=== PATIENT | male | born 1990 | race Caucasian/White ===

== ENCOUNTER 2023-05-03 13:20 | Outpatient (AMB) | payer BC, SELFPAY ==
--- NOTE | 2023-05-03 13:24 | MHC.OFFVIS ---
Intake Vital Signs 05/03/23 13:25 Height 5 ft 10 in Weight 183 lb 6.793 oz BMI 26.3 BP 136/84 Blood Pressure Location Lt brachial Position Sitting Pulse 70 Pulse Source Pulse Oximeter Intake Visit Reasons: Diarrhea Intake Note: Pt presents to the office today for c/o diarrhea. Pt states he has been having on and off diarrhea since 2019. Pt states he feels like he needs to go to the bathroom multiple times during the day but states he only goes about once a day and sometimes doesnt defecate at all everyday. Pt states he has mainly soft stools. Pt states he does get lower abdominal pain everyday which started in 2019. Pt denies any N/V or change to his diet. Pt has tried the FODMAP diet with no relief. Allergies No Known Allergies Allergy (Verified 05/03/23 13:26) HPI HPI Comments History of Present Illness Details A 32 y/o male lower stomach pains for the past couple of years. 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 Review of Systems Const All systems reviewed & are unremarkable except as noted in HPI and below Card Denies chest pain and Denies dyspnea Resp Denies dyspnea GI Reports abdominal pain, Denies hematochezia, Reports GI cramping, Denies heartburn, Reports loose stools, Denies nausea and Denies vomiting Psych Reports anxiety Physical Exam Vital Signs: Last Vital Signs Pulse 70 05/03/23 13:25 BP 136/84 05/03/23 13:25 BMI result Body Mass Index 26.3 Const General: cooperative, healthy appearing, comfortable and no acute distress Orientation/consciousness: patient oriented x3 Limitations: no limitations Eyes Conjunctivae: conjunctivae normal Resp Effort & Inspection: normal respiratory effort and able to speak in complete sentences Auscultation: clear to auscultation bilaterally, no rales, no rhonchi and no wheezes Cardio Rate: regular rate Rhythm: regular rhythm Heart sounds: S1 normal heart sound present and S2 normal heart sound present GI Inspection: Yes normal to inspection Palpation (GI): Soft to palpation and nontender Auscultation: normal bowel sounds Skin General skin exam: no rashes or lesions noted Neuro General: patient oriented x3 Extrem General: Yes full ROM Psych Appearance: grossly normal and well kempt Mental Status: mental status grossly normal Speech and movement: Clear speech present Affect: Labile affect present Attitude: cooperative Thought process: Normal thought process present Thought content: Normal thought content present Assessment & Plan Assessment & Plan (1) Abdominal pain: Comment: Second opinion- Diffuse -for a functional component Will give trial to dicyclomine g may increase to t.i.d. Code(s): R10.9 - Unspecified abdominal pain Plan Will get labs Colonoscopy order placed-will discuss further at follow-up Orders: Orders Thyroid Stimulating Hormone Today R19.8 - Other specified symptoms and signs involving the digestive system and abdomen Endomysial IgA rflx Titer Today R10.9 - Unspecified abdominal pain Transglutaminase IgA Today R19.7 - Diarrhea, unspecified Colonoscopy - GI Use Only Today Z12.11 - Encounter for screening for malignant neoplasm of colon C Reactive Protein Today R10.9 - Unspecified abdominal pain Erythrocyte Sedimentation Rate Today R19.7 - Diarrhea, unspecified Complete Blood Count Auto Diff Today K52.9 - Noninfective gastroenteritis and colitis, unspecified Comprehensive Met. Panel Today K58.9 - Irritable bowel syndrome without diarrhea Medications: New dicyclomine may take 1 QD increase to tid if need- 10 mg PO TID 90 caps 0RF Patient Instructions: 32-year-old male vague abdominal pain, will further evaluate tor/o IBD vs IBS-may have functional component Will get labs Trial of dicyclomine Reviewed stress reduction Encouraged to call with questions or concerns Colonoscopy order placed-will discuss further at follow-up Coding Level of Care Code New Pt Level 4 (74834) Diagnoses Abdominal pain R10.9 Time Spent (min) 30
[2023-05-03 13:25] VITALS: BP 136/84; PULSE 70; BMI 26.3
== END 2023-05-03 14:38 | disposition home or self-care (01) ==
PROVIDERS: PCP Registered Nurse; Visit Provider Physician Assistant
DX: R10.9 Unspecified abdominal pain (principal)
CPT/HCPCS: 99204

== ENCOUNTER 2023-05-03 13:20 | Outpatient (REF) | payer BC, SELFPAY ==
[2023-05-03 14:12] LABS: MANUAL DIFF FLAG NO
[2023-05-03 14:30] LABS: Basophils Percent Auto 0.6 % (0-2); Eosinophils Absolute Auto 0.1 X10*3/uL (0.0-0.4); Eosinophils Percent Auto 1.6 % (0-4); Hematocrit 51.2 % (42.0-52.0); Hemoglobin 17.1 g/dl (14.0-18.0); Imm Gran Abs Auto 0.02 X10*3/uL (0.00-0.03); Imm Gran Pct Auto 0.3 % (0.0-0.4); Lymphocytes Absolute Auto 1.8 X10*3/uL (1.2-4.9); Lymphocytes Percent Auto 26.9 % (20-40); Mean Corpuscular HGB Conc 33.4 g/dl (31.0-36.0); Mean Corpuscular Hemoglobin 30.8 pg (27.0-33.0); Mean Corpuscular Volume 92.1 fL (80.0-98.0); Mean Platelet Volume 10.5 fL (9.4-12.4); Monocytes Absolute Auto 0.4 X10*3/uL (0.1-1.2); Monocytes Percent Auto 6.6 % (2-11); Neutrophils Absolute Auto 4.3 x10*3/uL (2.0-8.3); Platelet Count 263 X10*3/uL (160-400); Red Blood Count 5.56 X10*6/uL (4.60-5.80); Red Cell Distribution Width 12.3 % (11.0-16.0); White Blood Count 6.7 X10*3/uL (4.8-10.8)
[2023-05-03 15:09] LABS: Erythrocyte Sedimentation Rate 1 MM/HR (0-15)
[2023-05-03 15:22] LABS: Alanine Aminotransferase 13 U/L (0-40); Albumin Level 4.8 g/dL (3.5-5.0); Alkaline Phosphatase 67 U/L (39-117); Anion Gap 11 (12-20); Aspartate Amino Transferase 16 U/L (5-37); Bilirubin Total 0.7 mg/dL (0.0-1.0); Blood Urea Nitrogen 13 mg/dL (9-16); C Reactive Protein < 0.04 mg/dL (< or = 0.50); Calcium 9.7 mg/dL (8.4-10.2); Carbon Dioxide 30 mmol/L (22-29); Chloride 104 mmol/L (96-108); Estimated Glomerular Filt Rate > 60; Glucose Random 125 mg/dL (60-115); Potassium 3.7 mmol/L (3.3-5.1); Sodium 141 mmol/L (135-145); Thyroid Stimulating Hormone 0.95 uIU/mL (0.32-4.0); Total Protein 7.6 g/dL (6.5-8.0)
[2023-05-06 12:03] LABS: Endomysial IgA Antibody Negative (Negative)
[2023-05-07 13:33] LABS: Transglutaminase IgA <1.0 U/mL
== END 2023-05-03 13:21 | disposition home or self-care (01) ==
LOC: HO.LAB 13:20
PROVIDERS: PCP Registered Nurse; Visit Provider Physician Assistant
DX: R10.9 Unspecified abdominal pain (principal); R19.8 Other specified symptoms and signs involving the digestive system and abdomen; K52.9 Noninfective gastroenteritis and colitis, unspecified; K58.0 Irritable bowel syndrome with diarrhea
CPT/HCPCS: 36415; 80053; 84443; 85025; 85652; 86140; 86231; 86364

== ENCOUNTER → 2023-06-02 12:27 | Outpatient (BNVA) | payer BC, SELFPAY | PROVIDERS: PCP Registered Nurse; Visit Provider Physician Assistant ==

== ENCOUNTER → 2023-06-02 12:27 | Outpatient (AMB) | payer BC, SELFPAY ==
--- NOTE | 2023-06-02 12:38 | MHC.OFFVIS ---
Intake Vital Signs 06/02/23 12:39 Height 5 ft 10 in Weight 182 lb BMI 26.1 BP 126/67 Blood Pressure Location Lt brachial Position Sitting Intake Visit Reasons: 4 week follow up Intake Note: Patient 4 weeks follow up abdominal pain and lab results. Patient cc: abdominal pain on and off with bloating, constipation. Denies any other GI issues. Bed Worker Required: No Accompanied by: Self / Same As Patient Allergies No Known Allergies Allergy (Verified 06/02/23 12:38) HPI HPI Comments History of Present Illness Details 32-year-old male seen initially for 2nd opinion had been worked up at [facility] was waiting to have colonoscopy however not covered by his insurance a so was referred here to [facility]. He had presented with vague abdominal pain, he is here for f/u after having blood work as well as a Trial of dicyclomine 10 mg- he had varying good response, taken 1 daily. Abdominal pain he does use Metamucil with good response noted stools less loose since he began taking dicyclomine. 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 Review of Systems Const All systems reviewed & are unremarkable except as noted in HPI and below Card Denies chest pain and Denies dyspnea Resp Denies dyspnea GI Denies abdominal pain, Denies heartburn, Denies diarrhea, Denies nausea and Denies vomiting Physical Exam Vital Signs: Last Vital Signs BP 126/67 06/02/23 12:39 BMI result Body Mass Index 26.1 Const General: cooperative, healthy appearing, comfortable and no acute distress Orientation/consciousness: patient oriented x3 Limitations: no limitations Eyes Sclerae: sclerae normal Skin General skin exam: no rashes or lesions noted Neuro General: patient oriented x3 Results Reviewed Results Reviewed: labs ok- no anemia- norml enzymes- tsh, celiac markers Assessment & Plan Assessment & Plan (1) IBS (irritable bowel syndrome): Comment: Pleasant -no abdominal pain-symptoms likely situational-working on stress reduction Code(s): K58.9 - Irritable bowel syndrome without diarrhea Plan: Continue dicyclomine 10 mg daily Stress reduction Plan Continue dicyclomine 10 mg daily Stress reduction Patient Instructions: Work on stress reduction-try to identify Factor Will continue dicyclomine 10 mg daily Follow-up with progress p.r.n. Waiting for colonoscopy to be scheduled-may reconsider Encouraged to call with any questions or concerns Coding Level of Care Code Est Pt Level 3 (01979) Diagnoses IBS (irritable bowel syndrome) K58.9 Time Spent (min) 20
[2023-06-02 12:39] VITALS: BP 126/67; BMI 26.1
== END ==
PROVIDERS: PCP Registered Nurse; Visit Provider Physician Assistant
DX: K58.9 Irritable bowel syndrome, unspecified (principal)
CPT/HCPCS: 99213